=== PATIENT | female | born 1945 | race Caucasian/White ===

== ENCOUNTER 2016-04-26 22:13 | Inpatient (IN) | payer OTHER, MEDICAID ==
[~2016-04-26] VITALS: Ht 170.2 cm; Wt 108.9 kg
[~2016-04-26 22:13] MED LIST: ASPI-1063 PO; CARV3.1246 PO; LEVO100T9 PO; LOSA50TA3 PO; NPH,100V11 SUBCUT; PRO20 PO; REPA1TAB3 PO; SIMV40TA2 PO; STA120 PO
[2016-04-26 22:48] VITALS: BP 123/82; PULSE 73; RESP 18; TEMP 98.3; O2SAT 98
[2016-04-26 23:55] LABS: BILIRUBIN,URINE NEGATIVE (NEGATIVE); BLOOD, URINE 3+ (NEGATIVE); CLARITY/URINE SL CLOUDY (CLEAR); COLOR,URINE BROWN (YELLOW); GLUCOSE,URINE 3+ (NEGATIVE); KETONES,URINE TRACE (NEGATIVE); LEUKOCYTE ESTERASE ,URINE 1+ (NEGATIVE); NITRITE, URINE POSITIVE (NEGATIVE); PH,URINE 6.5 (5.0-8.0); PROTEIN URINE 3+ (NEGATIVE)
[2016-04-27] VITALS (7 sets, daily range): BP systolic 140–156; BP diastolic 54–97; PULSE 63–80; RESP 16–20; TEMP 96.6–98.2; O2SAT 93–99
[2016-04-27 00:09] LABS: BACTERIA,URINE MODERATE /HPF (None Seen); RBC,URINE >100 /HPF (0-3); WBC,URINE 20-50 /HPF (0-3)
--- NOTE | 2016-04-27 00:10 | NUR ---
Patient to [facility] for evaluation. Side rails up. Report given to PER COLVIN.
--- NOTE | 2016-04-27 00:15 | NUR ---
Pt brought in by children in stable condition. Pt c/o sudden onset of LLQ abd pain 10/24 w/ +N/V. Pt stated that pain radiates to left flank. Pt stated that she has been sick w/ bronchitis for the past week and has since finished her antibiotic but still feels congestion. Pt does have a hx of DM. -SOB -chest pain. No acute distress noted at this time, will continue to monitor
--- NOTE | 2016-04-27 00:45 | NUR ---
BLAISE Fabian in [facility] examining patient.
[2016-04-27] MEDS ORDERED: NACL 0.9% 1,000 ML IV ONE (00:58)
[2016-04-27] MEDS ORDERED: KETOROLAC TROMETHAMINE 30 MG VIAL IVP ONE (01:00)
[2016-04-27] MEDS ORDERED: cefTRIAXone 1 GM IVPB PREMIX 50 ML IV ONE (01:00)
[2016-04-27] MEDS ORDERED: ONDANSETRON HCL 4 MG/2 ML VIAL IVP ONE (01:00)
--- NOTE | 2016-04-27 01:10 | NUR ---
Moved pt to bed 7
[2016-04-27 01:44] LABS: BASOPHILS # (AUTO) 0.1 K/uL (0.0-0.2); BASOPHILS % (AUTO) 0.4 % (0.0-2.0); EOSINOPHILS # (AUTO) 0.1 K/uL (0.0-0.4); EOSINOPHILS % (AUTO) 0.5 % (0.0-4.0); LYMPHOCYTES # (AUTO) 1.3 K/uL (1.0-5.5); LYMPHOCYTES % (AUTO) 7.2 % (20.5-51.5); MEAN CORPUSCULAR HEMOGLOBIN 30 pg (27-31); MEAN CORPUSCULAR HGB CONC 33 % (32-36); MEAN CORPUSCULAR VOLUME 90 fL (79.0-98.0); MONOCYTES # (AUTO) 1.1 K/uL (0.0-1.0); MONOCYTES % (AUTO) 6.1 % (1.7-9.3); PLATELET COUNT (AUTO) 299 K/uL (130-430); RED BLOOD CELL COUNT(AUTO) 4.35 MIL/uL (4.2-6.2); RED CELL DISTRIBUTION WIDTH 12.3 % (9.0-15.0); WHITE BLOOD COUNT (AUTO) 18.6 K/uL (4.8-10.8)
[2016-04-27 02:17] LABS: CALCIUM 8.9 mg/dL (8.4-11.0); CREATININE 1.77 mg/dL (0.55-1.30); POTASSIUM 4.2 mmol/L (3.5-5.1)
[2016-04-27 02:21] LABS: ALBUMIN 3.6 g/dL (3.4-4.8); TOTAL BILIRUBIN 0.4 mg/dL (0.0-1.0); TOTAL PROTEIN, SERUM 8.4 g/dL (6.4-8.3)
[2016-04-27] MEDS ORDERED: INSULIN REGULAR, HUMAN 10 UNITS/0.1 ML INJ IVP ONE (03:00)
[2016-04-27] MEDS ORDERED: INSU10VI4 SUBCUT ×2 (03:29)
[2016-04-27] MEDS ORDERED: HYDR-4100 PO (03:30)
[2016-04-27 04:12] LABS: NEUTROPHILS % (AUTO) 85.8 % (40.0-70.0)
[2016-04-27] MEDS ORDERED: ONDANSETRON HCL 4 MG/2 ML VIAL IVP PRN (04:15)
--- NOTE | 2016-04-27 04:25 | NUR ---
Called for a bed in [facility] and was told to wait 30 minutes for a bed
--- NOTE | 2016-04-27 04:53 | NUR ---
Patient will be admitted to care of Dr. Jeronimo. Admitted to med surg unit. Will go to room 100-b. Belongings list completed. Summary report printed. Report given to PER Resendiz.
--- NOTE | 2016-04-27 04:54 | NUR ---
ADMISSION NOTE Received patient from ER via gurney. Patient admitted with diagnosis of pyelonephritis. Patient is awake, alert, oriented X4. Patient oriented to hospital room, call light, toileting, pain management and safety-teach back done. Patient informed that MARISA MENDOZA will be her nurse and that their room number is 100B. Personal belongings checked and Belongings List documented. Call light within reach.
--- NOTE | 2016-04-27 05:00 | NUR ---
NOTES; RECEIVED PT FROM ER VIA GURNEY TO ROOM 100B. PT IS IN BED, A/A/AO X4. ORIENTED PT TO ROOM AND CALL LIGHT, PT VERBALIZED AND DEMONSTRATED UNDERSTANDING. NO ACUTE DISTRESS NOTED. VITAL SIGNS STABLE. PT STATED 2/10 LEFT QUADRANT TOLERABLE PAIN. PT STATED SHE WILL CALL WHEN IN NEED TO BE MEDICATED. IV SALINE LOCK TO THE RT AC , GAUGE 22, PATENT. ORDERED IVF STARTED BY LAY ALBARADO COVERING. INSTRUCTED PT TO USE CALL LIGHT TO CALL FOR ANY NEED TO ASSIST. BED LOCKED AND IN LOW POSITION, SIDE RAILS UP X3. CALL LIGHT WITHIN REACH.
--- NOTE | 2016-04-27 05:22 | NUR ---
CONSULT: DR Phan (López o/c) Consult was called, RE pyelonephritis sw Mi (she said López is cash applications coordinator).
[2016-04-27] MEDS: INSULIN REGULAR, HUMAN 100 UNITS/ML, 10 ML VIAL (novoLIN R) SUBCUT PRN ×4 (06:18→20:55)
[2016-04-27] MEDS: 0.45% NACL 1,000 ML IV SCH ×2 (06:25→17:03)
[2016-04-27] MEDS: MORPHINE 2 MG/ML INJ. SYRINGE IVP PRN ×2 (06:26→11:24)
--- NOTE | 2016-04-27 06:51 | NUR ---
NOTES; AWAKE, BLOOD SUGAR FOUND TO BE 278, INSULIN SLIDING SCALE ADMINISTERED ORDER. PT STATED EFFECTIVE PAIN MEDICATION. NO S/S OF DISTRESS NOTED. DENIES ANY SOB. VITAL SIGNS STABLE. ALL NEEDS MET. SAFETY MEASURES MAINTAINED. CALL LIGHT WITHIN REACH. WILL ENDORSE CARE TO ONCOMING NURSE.
--- NOTE | 2016-04-27 07:17 | NUR ---
AM ROUNDS: No s/s of distress noted. Will continue to monitor.
--- NOTE | 2016-04-27 10:23 | NUR ---
PATIENT RESTING: Patient resting quietly. No acute distress noted. Vital signs within normal range.
--- NOTE | 2016-04-27 11:27 | NUR ---
COMMUNICATION: Dr. Phan's office does not accept patient's insurance. Dr. Jeronimo paged.
--- NOTE | 2016-04-27 12:02 | NUR ---
COMMUNICATION: Dr. Jeronimo made aware that Dr. Phan's office does not accept patient's insurance.
--- NOTE | 2016-04-27 12:03 | NUR ---
PATIENT RESTING: Patient resting quietly. No acute distress noted. Vital signs within normal range.
[2016-04-27] MEDS: HYDROcodone/ACETAMIN 10-325 MG TAB PO SCH ×3 (12:40→20:43)
[2016-04-27] MEDS ORDERED: IPRATROPIUM BROM 0.5 MG/2.5 ML VIAL.NEB (ATROVENT) INH PRN (13:15)
[2016-04-27] MEDS ORDERED: ALBUTEROL SULFATE 0.083% 2.5 MG/3 ML VIAL.NEB INH PRN (13:15)
--- NOTE | 2016-04-27 13:25 | NUR ---
Nutrition Update Darnell Scale 17 noted. Pt admitted for pyelonephritis. Diet: [facility] BMI: 37.6 kg/m2 RD to follow per nutrition care standards.
[2016-04-27] MEDS: IPRATROPIUM BROM 0.5 MG/2.5 ML VIAL.NEB (ATROVENT) INH SCH ×2 (15:52→23:27)
[2016-04-27] MEDS: ALBUTEROL SULFATE 0.083% 2.5 MG/3 ML VIAL.NEB INH SCH ×2 (15:52→23:27)
--- NOTE | 2016-04-27 16:07 | NUR ---
PATIENT RESTING: Patient resting quietly. No acute distress noted. Vital signs within normal range.
--- NOTE | 2016-04-27 18:08 | NUR ---
CLOSING NOTE: All needs met. No change in assessment. Will endorse to NOC shift nurse.
--- NOTE | 2016-04-27 19:30 | NUR ---
notes received the pt from the day nurse.pt a/a/ox4 no c/o pain or discomfort.iv intact and infusing well call light within reach.safety measures in progress.continue to monitor.
[2016-04-27] MEDS: guaiFENesin 200 MG/10 ML UDC PO PRN (20:42)
--- NOTE | 2016-04-27 21:46 | NUR ---
notes family are at the bedside.accucheck was 345 insulin given per s/s.continue to monitor.
--- NOTE | 2016-04-27 23:25 | NUR ---
notes pt resting with eyes closed.call light within reach.continue to monitor.
[2016-04-28] MEDS ORDERED: cefTRIAXone 1 GM in D5W 50 ML IV SCH (01:00)
--- NOTE | 2016-04-28 01:25 | NUR ---
notes pt sleeping,call light within reach.continue to monitor.
--- NOTE | 2016-04-28 03:54 | NUR ---
notes pt sleeping.no distress noted .continue to monitor.
[2016-04-28 04:18] VITALS: BP 134/79; PULSE 70; RESP 18; TEMP 97.4; O2SAT 95
[2016-04-28] MEDS: guaiFENesin 200 MG/10 ML UDC PO PRN (05:04)
--- NOTE | 2016-04-28 05:18 | NUR ---
NOTES AWAKE,ALERT PT MEDICATED FOR A C/O A COUGH.NO OTHER COMPLAINTS GIVEN.
[2016-04-28] MEDS: INSULIN REGULAR, HUMAN 100 UNITS/ML, 10 ML VIAL (novoLIN R) SUBCUT PRN ×2 (06:21→12:07)
--- NOTE | 2016-04-28 06:33 | NUR ---
CLOSING NOTES ACCUCHECK WAS 326 INSULIN GIVEN PER S/S.PT GAVE HERSELF A BATH IN THE BATHROOM .FEELING BETTER.WILL ENDORSE THE CARE OF THE PT TO THE DAY NURSE.
[2016-04-28] MEDS ORDERED: LEVOTHYROXINE SODIUM 0.1 MG TABLET PO SCH (07:00)
--- NOTE | 2016-04-28 07:20 | NUR ---
Initial notes: pt awake, alert and oriented on bed. stable. call light within reach. report given at bedside.
[2016-04-28 08:00] VITALS: BP 141/61; PULSE 74; RESP 14; TEMP 96.9; O2SAT 94
[2016-04-28] MEDS ORDERED: LOSARTAN POTASSIUM 50 MG TABLET (COZAAR) PO SCH (09:00)
[2016-04-28] MEDS ORDERED: ASPIRIN 81 MG TABLET(ECOTRIN) PO SCH (09:00)
[2016-04-28] MEDS ORDERED: FLUoxetine HCL 20 MG CAPSULE (PROzac) PO SCH (09:00)
[2016-04-28] MEDS: HYDROcodone/ACETAMIN 10-325 MG TAB PO SCH (09:28)
--- NOTE | 2016-04-28 10:00 | NUR ---
rounds: pt on bed resting. no distress noted.
--- NOTE | 2016-04-28 11:00 | NUR ---
rounds: pt waiting for to go home.
[2016-04-28 11:06] VITALS: BP 145/72; PULSE 69; RESP 14; TEMP 96.9; O2SAT 94
--- NOTE | 2016-04-28 12:00 | NUR ---
rounds: pt on bed with at bedside.
--- NOTE | 2016-04-28 13:25 | NUR ---
D/C Patient Patient given medication reconciliation form and D/C instructions. Exit Care provided. Patient verbalized understanding. MD discussed with patient the results and treatment provided. Ambulatory with steady gait for discharge to home. Patient in stable condition, ID band removed. IV catheter removed, intact and dressing applied, no active bleeding. Electronic prescription given. Patient educated on pain management. All belongings sent with patient.
[2016-04-28] MEDS ORDERED: SIMVASTATIN 40 MG TABLET PO SCH (21:00)
--- NOTE | 2016-04-30 16:47 | NUR ---
Discharge Follow Up Phone Call CLASSROOM AIDE phoned patient, . Patient stated she was doing "so so". She filled her prescriptions and is taking them as directed. Her follow up appointment with Dr Neri is 05/03/16. She will discuss the urology follow up with him at that time. Patient's sugars have been high. CLASSROOM AIDE discussed that she should monitor closely and discuss with PCP. Patient knows to request a more urgent appointment with her PCP or go to the ER if her condition worsens. Patient lives with her family and they help her when needed. Patient had no other questions or concerns. No further follow up needed.
== END 2016-04-28 13:25 | disposition home or self-care (01) | DRG 690 ==
LOC: SED 22:13 → SMU 04-27 04:15
DX: N12 Tubulo-interstitial nephritis, not specified as acute or chronic (principal); K80.20 Calculus of gallbladder without cholecystitis without obstruction; N13.2 Hydronephrosis with renal and ureteral calculous obstruction; E11.9 Type 2 diabetes mellitus without complications; I10 Essential (primary) hypertension; E03.9 Hypothyroidism, unspecified; E78.00 Pure hypercholesterolemia, unspecified; F32.9 Major depressive disorder, single episode, unspecified; Z79.82 Long term (current) use of aspirin; Z79.899 Other long term (current) drug therapy; Z90.710 Acquired absence of both cervix and uterus
CPT/HCPCS: 36415; 71010; 80053; 81000-TC; 82962; 83605; 83690-TC; 85025; 87040-TC; 87086; 87186-TC; 94640; 94760; 96365; 96375; 99285; J0696; J1815; J1885; J2270; J2405; J7030; J7060

== ENCOUNTER 2019-08-30 13:03 | Emergency (ER) | payer MEDICAID, OTHER ==
[~2019-08-30] VITALS: Ht 170.2 cm; Wt 102.1 kg
[~2019-08-30 13:03] MED LIST changes: -ASPI-1063 PO; +ASPI-1153 PO; -CARV3.1246 PO; +HYDR-4100 PO; +INSU10VI4 SUBCUT; -NPH,100V11 SUBCUT
[2019-08-30 13:10] VITALS: BP_SYST 160
[2019-08-30] MEDS ORDERED: cefTRIAXone 1 GM VIAL IM ONE (13:45)
[2019-08-30] MEDS ORDERED: LIDOCAINE 2%, 20 ML MDV ONE (14:22)
[2019-08-30 14:28] VITALS: BP_SYST 149
== END 2019-08-30 14:28 | disposition home or self-care (01) ==
LOC: SED 13:03
DX: H01.003 Unspecified blepharitis right eye, unspecified eyelid (principal); I10 Essential (primary) hypertension; E11.9 Type 2 diabetes mellitus without complications; E78.00 Pure hypercholesterolemia, unspecified; Z79.899 Other long term (current) drug therapy; Z79.82 Long term (current) use of aspirin
CPT/HCPCS: 96374; 99283; J0696; J2001

== ENCOUNTER 2019-10-19 16:52 | Emergency (ER) | payer OTHER, MEDICAID ==
[~2019-10-19] VITALS: Ht 167.6 cm; Wt 99.8 kg
[2019-10-19 17:31] VITALS: BP_SYST 123
--- NOTE | 2019-10-19 17:35 | NUR ---
Patient triaged and placed in waiting room. VSS and patient appears in no acute distress at this time. Accompanied by , awaiting available bed, and MD notified of need for MSE.
[2019-10-19 18:43] LABS: BASOPHILS # (AUTO) 0.2 K/uL (0.0-0.2); BASOPHILS % (AUTO) 1.3 % (0.0-2.0); EOSINOPHILS # (AUTO) 0.2 K/uL (0.0-0.4); EOSINOPHILS % (AUTO) 1.5 % (0.0-4.0); HEMATOCRIT 38.2 % (36-48); HEMOGLOBIN 12.7 g/dL (12.0-16.0); LYMPHOCYTES # (AUTO) 2.6 K/uL (1.0-5.5); LYMPHOCYTES % (AUTO) 19.9 % (20.5-51.5); MEAN CORPUSCULAR HEMOGLOBIN 31 pg (27-31); MEAN CORPUSCULAR HGB CONC 33 % (32-36); MEAN CORPUSCULAR VOLUME 93 fL (79.0-98.0); MONOCYTES # (AUTO) 0.9 K/uL (0.0-1.0); MONOCYTES % (AUTO) 7.1 % (1.7-9.3); NEUTROPHILS # (AUTO) 9.2 K/uL (1.8-7.7); NEUTROPHILS % (AUTO) 70.2 % (40.0-70.0); PLATELET COUNT (AUTO) 379 K/uL (130-430); RED CELL DISTRIBUTION WIDTH 12.8 % (9.0-15.0); WHITE BLOOD COUNT (AUTO) 13.2 K/uL (4.8-10.8)
[2019-10-19 18:54] LABS: ANION GAP 9 (5-15); CALCIUM 8.8 mg/dL (8.4-11.0); CHLORIDE 102 mmol/L (98-107); CREATININE 2.54 mg/dL (0.55-1.30); GLUCOSE 263 mg/dL (70-99); POTASSIUM 3.9 mmol/L (3.5-5.1); SODIUM SERUM 134 mmol/L (136-145); UREA NITROGEN, BLOOD 43 mg/dL (8-21)
--- NOTE | 2019-10-19 19:01 | NUR ---
Patient to ER bed 3 to gown for evaluation. Side rails up.
--- NOTE | 2019-10-19 19:10 | NUR ---
pt a&o x4 c/o vomiting and diarrhea since friday morning. pt went and saw her primary doc today and he told her to come to the ER. pt c/o of generalized weakness, has not been able to keep any food or water down. pt denies pain. pts last episodes of vomiting and diarrhea were yesterday. pt hx of DM, HTN, depression. pt states her blood sugar this morning was 380.
--- NOTE | 2019-10-19 19:40 | NUR ---
ER Dr. Torres at bedside examining patient.
--- NOTE | 2019-10-19 19:50 | NUR ---
# 20 gauge angiocath placed to left forearm. Use of asceptic technique. Opsite placed over site. Blood return noted. Blood,blood cultures,lactic for lab drawn from site. Flushed with 10 cc of normal saline. No evidence of infiltration noted. Patient tolerated well.
[2019-10-19] MEDS ORDERED: NACL 0.9% 1,000 ML IV ONE (20:00)
[2019-10-19] MEDS ORDERED: ONDANSETRON HCL 4 MG/2 ML VIAL IVP ONE (20:00)
--- NOTE | 2019-10-19 20:00 | NUR ---
pt reports no longer feeling nauseous. pt refused zofran.
[2019-10-19 20:24] LABS: ALBUMIN 3.1 g/dL (3.4-4.8); BILIRUBIN,DIRECT 0.1 mg/dL (0.0-0.3); THYROID STIMULATING HORMONE 2.05 uIu/mL (0.36-3.74); TOTAL BILIRUBIN 0.4 mg/dL (0.0-1.0)
--- NOTE | 2019-10-19 20:49 | NUR ---
pt ambulated to restroom with steady gait. denies nausea, lightheadedness.
[2019-10-19 21:23] LABS: BILIRUBIN,URINE 1+ (NEGATIVE); COLOR,URINE YELLOW (YELLOW); GLUCOSE,URINE TRACE (NEGATIVE); KETONES,URINE TRACE (NEGATIVE); LEUKOCYTE ESTERASE ,URINE 1+ (NEGATIVE); NITRITE, URINE NEGATIVE (NEGATIVE); PH,URINE 5.5 (5.0-8.0); PROTEIN URINE 2+ (NEGATIVE); UROBILINOGEN,URINE 0.2 (0.2-1.0)
[2019-10-19 21:33] LABS: BLOOD, URINE TRACE (NEGATIVE)
[2019-10-19 21:34] LABS: CLARITY/URINE CLOUDY (CLEAR)
--- NOTE | 2019-10-19 21:36 | NUR ---
pt vital signs stable. denies pain,nausea.
[2019-10-19] MEDS ORDERED: cefTRIAXone 1 GM in D5W 50 ML IV ONE (22:00)
--- NOTE | 2019-10-19 22:12 | NUR ---
accnaima- bs 205
--- NOTE | 2019-10-19 22:13 | NUR ---
MD aware of patients blood sugar.
--- NOTE | 2019-10-19 22:15 | NUR ---
Blood cultures drawn, prior to administration of antibiotic.
[2019-10-19] MEDS ORDERED: cefTRIAXone 1 GM IVPB PREMIX 50 ML IV ONE (22:23)
[2019-10-19 22:30] LABS: BACTERIA,URINE MANY /HPF (None Seen); MUCUS,URINE 1+ /LPF (None Seen); RBC,URINE 0-3 /HPF (0-3); URIC ACID CRYSTALS,URINE 0-10 /HPF (None Seen)
[2019-10-19 23:06] VITALS: BP_SYST 159
--- NOTE | 2019-10-19 23:06 | NUR ---
Patient given written and verbal discharge instructions and verbalizes understanding. ER MD discussed with patient the results and treatment provided. Patient in stable condition. ID arm band removed. IV catheter removed intact and dressing applied, no active bleeding. Rx of keflex given. Patient educated on pain management and to follow up with PMD. Pain Scale 0/10. Opportunity for questions provided and answered. Medication side effect fact sheet provided.
== END 2019-10-19 23:06 | disposition home or self-care (01) ==
LOC: SED 16:52
DX: N39.0 Urinary tract infection, site not specified (principal); I10 Essential (primary) hypertension; E11.29 Type 2 diabetes mellitus with other diabetic kidney complication; N28.9 Disorder of kidney and ureter, unspecified; R19.7 Diarrhea, unspecified; R11.2 Nausea with vomiting, unspecified; E78.00 Pure hypercholesterolemia, unspecified; Z79.899 Other long term (current) drug therapy; Z79.82 Long term (current) use of aspirin; Z79.4 Long term (current) use of insulin
CPT/HCPCS: 36415; 80048; 80076; 81000; 82962; 84443; 85025; 87040; 87086; 96361; 96365; 99285; J0696; J2405; J7030

== ENCOUNTER 2020-01-06 17:53 | Emergency (ER) | payer OTHER, MEDICAID, SELFPAY ==
[~2020-01-06] VITALS: Ht 157.5 cm; Wt 81.6 kg
[~2020-01-06 17:53] MED LIST changes: -ASPI-1153 PO; +ASPI-1393 PO
[2020-01-06 18:02] VITALS: BP_SYST 200
--- NOTE | 2020-01-06 18:06 | NUR ---
Patient to ER bed 07 to gown for evaluation. Side rails up. Report given to PER Foote
--- NOTE | 2020-01-06 18:13 | NUR ---
ER Dr. Barreto at bedside examining patient.
[2020-01-06] MEDS ORDERED: KETOROLAC TROMETHAMINE 60 MG/2 ML VIAL IM ONE (18:15)
[2020-01-06] MEDS ORDERED: cloNIDine HCL 0.1 MG TABLET PO ONE (18:15)
--- NOTE | 2020-01-06 18:20 | NUR ---
Patient presented to ER C/O SOB. Patient ambulatory to ER, A&Ox4, afebrile, skin pink and warm, pain 5/10, denies N/V/D. Patient states she has SOB today, and wants to be tested for COVID-19. PT states she is concerned, tested positive for COVID-19 and admitted to [facility] today.
[2020-01-06 19:00] VITALS: BP_SYST 183
--- NOTE | 2020-01-06 19:00 | NUR ---
Patient given written and verbal discharge instructions and verbalizes understanding. ER MD discussed with patient the results and treatment provided. Patient in stable condition. ID arm band removed. Rx of NAPROXEN given. Patient educated on pain management and to follow up with PMD. Pain Scale3/10 . Opportunity for questions provided and answered. Medication side effect fact sheet provided.
--- NOTE | 2020-01-06 19:10 | NUR ---
Patient requested admitted 's wallet. Patient's in 122. [place] nurse, Zoe, gave wallet to patient per request.
--- NOTE | 2020-01-07 17:55 | NUR ---
Covid results Called to patient home and verified 1947, states tested on 01/06/20 at [facility] ER- pt informed results are covid-19 positive, patient verbalizes complete understanding.
--- NOTE | 2020-01-08 10:52 | NUR ---
Called pt at [phone]. Spoke with the pt and made aware that her Covid results are postive. Advised pt to isolate herself for 14 days. Pt verbalized understanding
== END 2020-01-06 19:10 | disposition home or self-care (01) ==
LOC: SED 17:53
DX: B34.9 Viral infection, unspecified (principal); M54.5 Low back pain; I10 Essential (primary) hypertension; E11.9 Type 2 diabetes mellitus without complications; E78.00 Pure hypercholesterolemia, unspecified; Z87.442 Personal history of urinary calculi; Z79.899 Other long term (current) drug therapy; Z79.82 Long term (current) use of aspirin; Z79.4 Long term (current) use of insulin
CPT/HCPCS: 96372; 99283; C9803; J1885; U0003

== ENCOUNTER 2020-04-23 12:56 | Emergency (ER) | payer OTHER, MEDICAID ==
[~2020-04-23] VITALS: Ht 170.2 cm; Wt 100.7 kg
[2020-04-23 13:39] VITALS: BP_SYST 173
[2020-04-23 15:14] VITALS: BP_SYST 146
== END 2020-04-23 15:13 | disposition home or self-care (01) ==
LOC: SED 12:56
DX: M25.572 Pain in left ankle and joints of left foot (principal); M79.671 Pain in right foot; I10 Essential (primary) hypertension; E11.9 Type 2 diabetes mellitus without complications; Z79.4 Long term (current) use of insulin; Z79.899 Other long term (current) drug therapy; W01.0XXA Fall on same level from slipping, tripping and stumbling without subsequent striking against object, initial encounter; Y93.89 Activity, other specified; Y92.89 Other specified places as the place of occurrence of the external cause; Y99.8 Other external cause status
CPT/HCPCS: 73560-TC; 73590-TC; 99284

== ENCOUNTER 2022-03-04 20:55 | Emergency (ER) | payer OTHER, MEDICAID ==
[~2022-03-04] VITALS: Ht 170.2 cm; Wt 99.8 kg
[~2022-03-04 20:55] MED LIST changes: +HYDR-3927 PO; -HYDR-4100 PO
[2022-03-04 21:16] VITALS: BP_SYST 132
[2022-03-05] MEDS ORDERED: cephALEXin 500 MG CAPSULE PO ONE
[2022-03-05] MEDS ORDERED: IBUPROFEN 600 MG TABLET PO ONE
[2022-03-05] MEDS ORDERED: IBUP-1970 PO
[2022-03-05] MEDS ORDERED: CEPH250C PO
[2022-03-05 00:34] VITALS: BP_SYST 130
== END 2022-03-05 00:34 | disposition home or self-care (01) ==
LOC: SED 20:55
DX: M79.671 Pain in right foot (principal); M79.604 Pain in right leg; Z79.899 Other long term (current) drug therapy
CPT/HCPCS: 93971; 99284

== ENCOUNTER 2023-03-09 21:04 | Emergency (ER) | payer OTHER, MEDICAID ==
[~2023-03-09] VITALS: Ht 167.6 cm; Wt 102.1 kg
[~2023-03-09 21:04] MED LIST changes: +CEPH250C PO; +IBUP-1970 PO; +LOSA-413 PO; -LOSA50TA3 PO; +SIMV-345 PO; -SIMV40TA2 PO
[2023-03-09 21:42] VITALS: BP_SYST 145; PULSE 81; RESP 18; TEMP 97.9; O2SAT 100
[2023-03-09 22:43] LABS: BASOPHILS % (AUTO) 0.2 % (0.0-2.0); EOSINOPHILS % (AUTO) 0.3 % (0.0-4.0); HEMATOCRIT 31.2 % (36-48); HEMOGLOBIN 10.3 g/dL (12.0-16.0); LYMPHOCYTES # (AUTO) 0.3 K/uL (1.0-5.5); LYMPHOCYTES % (AUTO) 3.1 % (20.5-51.5); MEAN CORPUSCULAR HEMOGLOBIN 30 pg (27-31); MEAN CORPUSCULAR HGB CONC 33 % (32-36); MEAN CORPUSCULAR VOLUME 92 fL (79.0-98.0); MONOCYTES # (AUTO) 0.3 K/uL (0.0-1.0); NEUTROPHILS # (AUTO) 9.7 K/uL (1.8-7.7); NEUTROPHILS % (AUTO) 93.4 % (40.0-70.0); PLATELET COUNT (AUTO) 292 K/uL (130-430); RED BLOOD CELL COUNT(AUTO) 3.39 MIL/uL (4.2-6.2); RED CELL DISTRIBUTION WIDTH 13.3 % (9.0-15.0); WHITE BLOOD COUNT (AUTO) 10.3 K/uL (4.8-10.8)
[2023-03-09 23:24] LABS: ANION GAP 18 (5-15); CALCIUM 8.8 mg/dL (8.4-11.0); CARBON DIOXIDE 17 mmol/L (23-29); CHLORIDE 103 mmol/L (98-107); CREATININE 4.01 mg/dL (0.55-1.30); GLUCOSE 190 mg/dL (74-106); POTASSIUM 4.1 mmol/L (3.5-5.1); SODIUM SERUM 138 mmol/L (136-145); UREA NITROGEN, BLOOD 60 mg/dL (8-21)
[2023-03-09 23:31] LABS: ALANINE AMINOTRANSFERASE 20 U/L (12-78); ALBUMIN 3.6 g/dL (3.4-4.8); ASPARTATE AMINOTRANSFERASE 23 U/L (10-37); TOTAL BILIRUBIN 0.4 mg/dL (0.0-1.0); TOTAL PROTEIN, SERUM 7.8 g/dL (6.4-8.3)
[2023-03-09] MEDS ORDERED: NACL 0.9% 1,000 ML IV ONE (23:45)
[2023-03-09] MEDS ORDERED: ONDANSETRON HCL 4 MG/2 ML VIAL IVP ONE (23:45)
[2023-03-10 00:14] LABS: INFLUENZA TYPE A Negative (NEGATIVE); INFLUENZA TYPE B NEGATIVE (NEGATIVE)
[2023-03-10 00:55] VITALS: TEMP 98.3
[2023-03-10] MEDS ORDERED: ONDA-8 TL (01:45)
[2023-03-10 01:58] VITALS: BP_SYST 154; PULSE 74; RESP 20; O2SAT 98
== END 2023-03-10 01:58 | disposition home or self-care (01) ==
LOC: SED 21:04
DX: R11.2 Nausea with vomiting, unspecified (principal); E86.0 Dehydration; I12.9 Hypertensive chronic kidney disease with stage 1 through stage 4 chronic kidney disease, or unspecified chronic kidney disease; E11.22 Type 2 diabetes mellitus with diabetic chronic kidney disease; N18.9 Chronic kidney disease, unspecified; Z79.4 Long term (current) use of insulin; Z79.899 Other long term (current) drug therapy; Z20.822 Contact with and (suspected) exposure to COVID-19
CPT/HCPCS: 99283; 87426; 80053; 82962; 85025; 84484; 36415; 87804 ×2; 96374; 96361; J2405; J7030